=== PATIENT | female | born 1965 | race African-American/Black ===

== ENCOUNTER 2017-02-14 10:36 | Emergency (ER) | payer MEDICAID ==
[~2017-02-14] VITALS: Ht 154.9 cm; Wt 52.5 kg
[~2017-02-14 10:36] MED LIST: ACET1TAB64 PO; ALPR0.5T6 PO; ALPR1TAB6 PO; ASPI325T4 PO; BIOT0.5P PO; BIOT25004 PO; DEXL60CA PO; DIAZ10TA PO; DIAZ5TAB4 PO; ESOM40CA PO; FERR325T20 PO; FLUO20CA8 PO; FLUO40CA2 PO; HYDR-882 PO; HYDR15SO3 PO; MULT-516 PO; NAPROXEN PO; OXYC-229 PO; TYLENOL ARTHRITIS PO
[2017-02-14 10:37] VITALS: BP 114/74
== END 2017-02-14 11:45 | disposition home or self-care (01) ==
LOC: ED 11:39
DX: B02.33 Zoster keratitis (principal)
CPT/HCPCS: 99283

== ENCOUNTER 2017-04-09 00:06 | Emergency (ER) | payer MEDICAID ==
[~2017-04-09] VITALS: Ht 165.1 cm; Wt 52.0 kg
[2017-04-09] MEDS ORDERED: FERR240T2 PO (00:54)
[2017-04-09] MEDS ORDERED: CHOL400C11 PO (00:54)
[2017-04-09 01:35] LABS: ASPARTATE AMINO TRANSFERASE 17 U/L (15-37); BLOOD UREA NITROGEN 13 mg/dL (7-18)
[2017-04-09 03:06] VITALS: BP 130/88
== END 2017-04-09 03:07 | disposition home or self-care (01) ==
LOC: ED 02:24
DX: R10.13 Epigastric pain (principal); R10.11 Right upper quadrant pain; K21.9 Gastro-esophageal reflux disease without esophagitis
CPT/HCPCS: 36415; 70450; 76700; 80053; 81003; 83690; 85025; 85610; 85730; 93005

== ENCOUNTER → 2017-06-09 | Outpatient (CLI) | payer MEDICAID ==
[~2017-06-09] MED LIST changes: +CHOL400C11 PO; +CYAN1TAB29 PO; +ESTR1TAB15 PO; +FERR240T2 PO; +PANT40TA5 PO
== END | disposition home or self-care (01) ==
LOC: STAR 11:37
PROVIDERS: ATTEND Orthopaedic Surgery
DX: Z02.9 Encounter for administrative examinations, unspecified (principal)

== ENCOUNTER 2017-06-10 09:54 | Day surgery (SDC) | payer MEDICAID ==
[~2017-06-10] VITALS: Ht 154.9 cm; Wt 50.9 kg
[2017-06-10] MEDS ORDERED: LACTATED RINGERS 1,000 ML IV SCH (10:23)
[2017-06-10 10:27] VITALS: BP 114/82
[2017-06-10] MEDS ORDERED: MIDAZOLAM 1 MG/ML, 2ML ONE (10:38)
[2017-06-10] MEDS ORDERED: FENTANYL PF 250 MCG/5ML ONE (10:39)
[2017-06-10] MEDS ORDERED: ACETAMINOPHEN 325 MG TABLET PO PRN (11:00)
[2017-06-10] MEDS ORDERED: HYDROmorphone 1 MG/ML, 1ML IV PRN (11:00)
[2017-06-10] MEDS ORDERED: MEPERIDINE/PF 25MG/0.5ML IVPush PRN (11:00)
[2017-06-10] MEDS ORDERED: ONDANSETRON 2MG/ML, 2ML IVPush PRN (11:00)
[2017-06-10] MEDS ORDERED: FENTANYL PF 100 MCG/2ML IV PRN (11:00)
[2017-06-10] MEDS ORDERED: PROMETHAZINE 25 MG/ML, 1ML IV PRN (11:00)
[2017-06-10] MEDS ORDERED: HYDROcodone/APAP 7.5-325MG/15ML UDC PO PRN (11:00)
[2017-06-10] MEDS ORDERED: LABETALOL 5MG/ML, 20ML IV PRN (11:00)
[2017-06-10] MEDS ORDERED: hydrALAzine 20 MG/ML, 1ML IV PRN (11:00)
[2017-06-10] MEDS ORDERED: OXYcodone 5 MG/5 ML ORAL.SOL UDC PO PRN (11:00)
[2017-06-10] MEDS ORDERED: MIDAZOLAM 1 MG/ML, 2ML IV PRN (11:00)
[2017-06-10] MEDS ORDERED: EPHEDRINE 50 MG/ML, 1ML IVPush PRN (11:00)
[2017-06-10] MEDS ORDERED: ROPIvacaine/PF 0.5%, 30 ML ONE (11:33)
[2017-06-10] MEDS ORDERED: BUPIVACAINE/PF 0.5% ONE (11:42)
[2017-06-10] MEDS ORDERED: PROPOFOL 10 MG/ML, 20ML ONE (11:46)
[2017-06-10] MEDS ORDERED: CEFAZOLIN 1,000 MG ONE (11:46)
[2017-06-10] MEDS ORDERED: ONDANSETRON 2MG/ML, 2ML ONE (11:46)
[2017-06-10] MEDS ORDERED: KETOROLAC 30 MG/1 ML ONE (11:46)
[2017-06-10] MEDS ORDERED: DEXAMETHASONE 4 MG/ML, 1ML ONE (11:46)
[2017-06-10] MEDS ORDERED: ACETAMINOPHEN 650 MG/20.3 ML UDC ONE (12:35)
[2017-06-10] MEDS ORDERED: OXYcodone 5 MG/5 ML ORAL.SOL UDC ONE (12:35)
== END 2017-06-10 13:30 ==
LOC: OUT 09:54
PROVIDERS: ATTEND Orthopaedic Surgery
DX: S83.282A Other tear of lateral meniscus, current injury, left knee, initial encounter (principal); F41.9 Anxiety disorder, unspecified; K21.9 Gastro-esophageal reflux disease without esophagitis; F17.200 Nicotine dependence, unspecified, uncomplicated; X58.XXXA Exposure to other specified factors, initial encounter; Y93.9 Activity, unspecified; Y92.9 Unspecified place or not applicable; Y99.9 Unspecified external cause status
CPT/HCPCS: 29881; J0690; J1100; J1885; J2250; J2405; J2704; J2795; J3010; J7120; J3490

== ENCOUNTER 2018-08-14 03:05 | Emergency (ER) | payer MEDICAID ==
[~2018-08-14] VITALS: Ht 157.5 cm; Wt 56.4 kg
[~2018-08-14 03:05] MED LIST changes: +ASPI325T17 PO; -ASPI325T4 PO; -BIOT25004 PO; +BIOT25005 PO; -DEXL60CA PO; +DEXL60CA2 PO; +FERR325T18 PO; -FERR325T20 PO; -OXYC-229 PO; +OXYC-307 PO
[2018-08-14 03:08] VITALS: BP 124/85
[2018-08-14] MEDS ORDERED: IBUPROFEN (03:12)
[2018-08-14] MEDS ORDERED: IBUPROFEN 200 MG TABLET ONE (03:26)
[2018-08-14] MEDS ORDERED: DIPHENHYDRAMINE 25 MG CAPSULE ONE (03:26)
[2018-08-14] MEDS ORDERED: IBUPROFEN 200 MG TABLET PO ONE (03:30)
[2018-08-14] MEDS ORDERED: DIPHENHYDRAMINE 25 MG CAPSULE PO ONE (03:30)
[2018-08-14 03:38] LABS: BASOPHILS # (AUTO) 0.05 x10^3/uL (0-0.1); BASOPHILS % (AUTO) 1 % (0-1); EOSINOPHILS # (AUTO) 0.36 x10^3/uL (0-0.4); EOSINOPHILS % (AUTO) 9 % (1-7); LYMPHOCYTES # (AUTO) 1.36 x10^3/uL (1-3.4); LYMPHOCYTES % (AUTO) 32 % (22-44); MD NO; MEAN CORPUSCULAR HEMOGLOBIN 31.7 pg (27.0-34.8); MEAN CORPUSCULAR HGB CONC 33.6 g/dL (32.4-35.8); MEAN CORPUSCULAR VOLUME 94.4 fL (80-100); MEAN PLATELET VOLUME 8.7 fL (7.4-10.4); MONOCYTES # (AUTO) 0.35 x10^3/uL (0.2-0.8); MONOCYTES % (AUTO) 8 % (2-9); NEUTROPHILS # (AUTO) 2.11 x10^3/uL (1.8-6.8); NEUTROPHILS % (AUTO) 50 % (42-75); PLATELET COUNT 285 x10^3/uL (130-400); RED BLOOD COUNT 4.19 x10^6/uL (3.82-5.3)
[2018-08-14 03:46] LABS: ALANINE AMINOTRANSFERASE 28 U/L (12-78); ALBUMIN 3.4 g/dL (3.4-5.0); ANION GAP 11 mmol/L (5-15); CALCIUM 9.2 mg/dL (8.5-10.1); CHLORIDE 110 mmol/L (98-107); CREATININE 0.92 mg/dL (0.55-1.02)
[2018-08-14 03:48] LABS: ALKALINE PHOSPHATASE 112 U/L (45-117); BILIRUBIN,TOTAL 0.7 mg/dL (0.2-1.0)
== END 2018-08-14 04:23 | disposition home or self-care (01) ==
LOC: ED 04:19
DX: M79.641 Pain in right hand (principal); M79.671 Pain in right foot; M79.642 Pain in left hand; M79.672 Pain in left foot
CPT/HCPCS: 36415; 80053; 85025; 99284; Q0163